=== PATIENT | male | born 1990 | race Caucasian/White ===

== ENCOUNTER 2019-09-02 21:15 | Emergency (ER) | payer BC ==
[~2019-09-02] VITALS: Ht 182.9 cm; Wt 81.6 kg
[2019-09-02 21:30] VITALS: BP_SYST 152
[2019-09-02] MEDS ORDERED: ONDANSETRON 4 MG ODT TAB PO ONE (22:45)
[2019-09-02 22:55] VITALS: BP_SYST 150
== END 2019-09-02 22:55 | disposition home or self-care (01) ==
LOC: SED 21:15
DX: R19.7 Diarrhea, unspecified (principal); R42 Dizziness and giddiness; Z88.1 Allergy status to other antibiotic agents
CPT/HCPCS: 99283; Q0162; 99282